=== PATIENT | female | born 1985 | race Hispanic/Latino ===

== ENCOUNTER 2019-03-08 16:53 | Emergency (ER) | payer BC, OTHER ==
[2019-03-08 17:22] LABS: BASOPHILS % (AUTO) 1.6 % (0.0-5.0); EOSINOPHILS % (AUTO) 1.5 % (0.0-8.0); LYMPHOCYTES % (AUTO) 23.4 % (21.0-51.0); MEAN CORPUSCULAR HEMOGLOBIN 29.7 pg (27.0-33.0); MEAN CORPUSCULAR VOLUME 87.4 fL (79-99); MONOCYTES % (AUTO) 4.7 % (3.0-13.0); NEUTROPHILS % (AUTO) 68.8 % (40.0-77.0); PLATELET COUNT (AUTO) 308 K/uL (130-400); RED BLOOD CELL COUNT(AUTO) 4.69 MIL/uL (4.00-5.50); RED CELL DISTRIBUTION WIDTH 13.8 % (11.0-15.5); WHITE BLOOD COUNT (AUTO) 11.6 K/uL (4.8-10.8)
== END 2019-03-08 18:22 | disposition home or self-care (01) ==
LOC: EDH 16:53
DX: O20.0 Threatened abortion (principal); Z3A.12 12 weeks gestation of pregnancy
CPT/HCPCS: 36415; 76801; 84702; 85025; 86900; 86901

== ENCOUNTER 2019-07-03 07:47 | Day surgery (SDC) | payer BC ==
[2019-07-01 17:14] LABS: BASOPHILS % (AUTO) 0.4 % (0.0-5.0); EOSINOPHILS % (AUTO) 0.5 % (0.0-8.0); HEMATOCRIT 40.4 % (36-48); MEAN CORPUSCULAR HEMOGLOBIN 27.9 pg (27.0-33.0); MEAN CORPUSCULAR HGB CONC 32.4 g/dL (32.0-36.0); MEAN CORPUSCULAR VOLUME 86.1 fL (79-99); MONOCYTES % (AUTO) 5.2 % (3.0-13.0); NEUTROPHILS % (AUTO) 72.6 % (40.0-77.0); PLATELET COUNT (AUTO) 336 K/uL (130-400); RED BLOOD CELL COUNT(AUTO) 4.69 MIL/uL (4.00-5.50); RED CELL DISTRIBUTION WIDTH 13.7 % (11.0-15.5); WHITE BLOOD COUNT (AUTO) 13.3 K/uL (4.8-10.8)
[2019-07-01 18:03] VITALS: BP 117/66
--- NOTE | 2019-07-02 16:23 | NUR ---
Spoke to Rochelle Tobar , medical assistance and I reported wbc 13.3, pending md to call back with orders if any.
[~2019-07-03] VITALS: Ht 160 cm; Wt 88.5 kg
[2019-07-03] VITALS (12 sets, daily range): BP systolic 122–138; BP diastolic 47–86
[~2019-07-03 07:47] MED LIST: LACTATED RINGERS 1000ML 1,000 ML IV SCH; MULT-1192 PO
[2019-07-03] MEDS: CALDOLOR 800MG+NS 250ML 250 ML IV SCH ×2 (08:49→09:55)
[2019-07-03] MEDS: CEFAZOLIN SODIUM 1 GM VIAL IVP SCH ×2 (08:49→09:50)
[2019-07-03] MEDS ORDERED: BUPIVACAINE/PF 0.25% 30ML VIAL IJ ONE (09:20)
[2019-07-03] MEDS ORDERED: OCTYL 2-CYANOACRYLATE 1 EACH TP ONE (09:20)
[2019-07-03] MEDS ORDERED: MIDAZOLAM HCL 1 MG/ML 2ML VIAL ONE (09:40)
[2019-07-03] MEDS ORDERED: LIDOCAINE PF 2% 5ML ABBOJECT ONE (09:43)
[2019-07-03] MEDS ORDERED: ONDANSETRON HCL 4 MG/2 ML VIAL ONE (09:44)
[2019-07-03] MEDS ORDERED: ROCURONIUM 10MG/1ML SYR 10 MG/ML ML ONE (09:44)
[2019-07-03] MEDS ORDERED: PROPOFOL 10 MG/ML 20ML VIAL IV ONE (09:44)
[2019-07-03] MEDS ORDERED: FENTANYL CITRATE PF 50 MCG/1 ML 2ML VIAL ONE ×5 (09:44→12:57)
[2019-07-03] MEDS ORDERED: NEOSTIGMINE 5MG/5ML SYR IV ONE (12:22)
[2019-07-03] MEDS ORDERED: GLYCOPYRROLATE 1 MG/5 ML SYRINGE ONE (12:22)
--- NOTE | 2019-07-03 13:50 | NUR ---
dressing dressing x 3 small dressing covered with opsites dry and intact
--- NOTE | 2019-07-03 13:50 | NUR ---
POST RECEIVED PT FROM PACU, S/ EUA DX LAPAROSCOPY LEFT OVARIAN CYSTECTOMY DRESSING TO ABD X 2 D&I. NO DISTRESS NOTED. VS STABLE . PT VOIDED ON ARRIVAL. CALL LIGHT WITHIN REACH.
--- NOTE | 2019-07-03 14:25 | NUR ---
dc pt dc home via [place], no distress noted. pt denied any pain or discomforts. pt accompanied by spouse. dressing dry and in tact
== END 2019-07-03 14:25 | disposition home or self-care (01) ==
LOC: DAH 07:47
PROVIDERS: ATTEND Obstetrics & Gynecology
DX: D27.1 Benign neoplasm of left ovary (principal); N73.6 Female pelvic peritoneal adhesions (postinfective); Z79.899 Other long term (current) drug therapy; Z72.89 Other problems related to lifestyle; Z87.891 Personal history of nicotine dependence; Z83.3 Family history of diabetes mellitus
CPT/HCPCS: 36415; 58661; 84703; 85025; 86850; 86900; 86901; A4213; A4215; A4221; A4222; A4223; A4344; A4351; A4510; A4600; A4649 ×3; A4663; A4930; C1769 ×3; G0168; J0690; J1741; J2001; J2250; J2405; J2704; J2710; J3010 ×5; J3490 ×2; J7030 ×2; J7120 ×2